=== PATIENT | female | born 2000 | race American Indian/Alaskan Native ===

== ENCOUNTER 2020-01-29 15:26 | Emergency (ER) | payer OTHER ==
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
[2020-01-29 17:19] VITALS: BP 106/72
== END 2020-01-29 17:05 | disposition home or self-care (01) ==
LOC: ED 15:26
DX: S16.1XXA Strain of muscle, fascia and tendon at neck level, initial encounter (principal); Z79.899 Other long term (current) drug therapy; V49.59XA Passenger injured in collision with other motor vehicles in traffic accident, initial encounter; Y93.89 Activity, other specified; Y92.488 Other paved roadways as the place of occurrence of the external cause; Y99.8 Other external cause status
CPT/HCPCS: 99282